=== PATIENT | male | born 1955 | race Caucasian/White ===

== ENCOUNTER → 2021-07-09 | Outpatient (CLI) | payer BC ==
[~2021-07-09] VITALS: Ht 180.3 cm; Wt 88.9 kg
== END ==
LOC: ER1 10:52 → EROP 11:29 → EDSTATUS 11:29
DX: U07.1 COVID-19 (principal); Z23 Encounter for immunization
CPT/HCPCS: 96365

== ENCOUNTER → 2021-08-23 | Outpatient (CLI) | payer BC | LOC: KOH-I 08:00 | DX: D69.6 Thrombocytopenia, unspecified (principal); R16.0 Hepatomegaly, not elsewhere classified | CPT/HCPCS: 76705 ==